=== PATIENT | female | born 1950 | race Caucasian/White ===

== ENCOUNTER 2019-11-04 12:58 | Outpatient (CLI) | payer MEDICARE, SELFPAY ==
--- NOTE | 2019-11-04 13:21 | XR_ITS ---
WS: [id number] Bone mineral density performed on a [employer], 11/04/2019 Clinical data: POST MENOPAUSAL Findings: The first 4 lumbar vertebral bodies demonstrated the bone mineral density of 1.016 g/cm2 for a young adult T score of -1.4 Measurement of the left hip reveals a bone mineral density of 0.768 g/cm2 with a young adult T score of -1.9. Measurement of the right hip reveals the bone mineral density of 0.754 g/sq cm for young adult T scor e of -2.0. XR/XR DEXA axial skeleton* [id number] Impression: Osteopenia of the lumbar spine and both hips.
== END 2019-11-04 12:59 | disposition home or self-care (01) ==
LOC: RADWPI 13:07
PROVIDERS: Family Provider Internal Medicine; PCP Internal Medicine; Referring Provider Internal Medicine; Visit Provider Internal Medicine
DX: Z78.0 Asymptomatic menopausal state (principal); M85.88 Other specified disorders of bone density and structure, other site
CPT/HCPCS: 77080

== ENCOUNTER 2019-12-09 08:43 | Day surgery (SDC) | payer MEDICARE, SELFPAY ==
[2019-12-06 13:22] VITALS: BMI 32.8
--- NOTE | 2019-12-09 08:58 | PM.HPUD ---
H&P update H&P Update: DATE OF SURGERY/PROCEDURE: 12/09/19 DATE H&P PERFORMED: 12/05/19 PLANNED PROCEDURE: Operation Date: 12/09/19 10:30 Proposed Procedures p EGD 11517 R10.9(Not Applicable) - Matt Dewitt MD Full H&P Perinent History: Medical/Surgical History: Medical History (Updated 12/05/19 @ 15:54 by Matt Dewitt MD) PMR (polymyalgia rheumatica) (Acute) Situational hypertension (Acute) Family History: Family History (Updated 12/05/19 @ 09:32 by Judith Mercado LPN) Other Diabetes Heart disease Social History: Social History Smoking and tobacco status: never smoked Alcohol intake: current Alcohol intake frequency: holidays/special occasions only Marital status: Current occupational status: retired History of recent travel: No
--- NOTE | 2019-12-09 09:20 | ANES.PREANE2 ---
Pre-Anesthetic Assessment Pre-Anesthetic Assessment: Height/Weight: Height 1.7 m Weight 95.254 kg Preop Diagnosis: RUQ pain Proposed Procedure: Operation Date: 12/09/19 10:30 Proposed Procedures p EGD 39045 R10.9(Not Applicable) - Matt Dewitt MD Last Intake: 18:30 Exam: Pre-Anes Outpt Exam: alert, oriented x 3, clear to auscultation bilaterally and regular rate & rhythm Airway: Submandibular: WNL Cervical ROM: WNL MP: 1 Dentition: Caps GI: Comments: RUQ pain Anesthetic Plan: ASA status: 1 Anesthesia: MAC PFSH Anesthesia PFSH: Medical History (Updated 12/05/19 @ 15:54 by Matt Dewitt MD) PMR (polymyalgia rheumatica) (Acute) Situational hypertension (Acute) Surgical History (Updated 12/05/19 @ 15:54 by Matt Dewitt MD) History of bilateral mastectomy (Acute) History of breast surgery (Acute) History of colonoscopy (Acute) Social History (Updated 12/05/19 @ 14:46 by RODO Augustin) Smoking and tobacco status: never smoked Alcohol intake: current Alcohol intake frequency: holidays/special occasions only Marital status: Current occupational status: retired History of recent travel: No Data Anesthesia Cardiac Studies: No Data to Display
[2019-12-09 09:48] VITALS: BP 130/87; PULSE 77; RESP 20; O2SAT 100
[2019-12-09] MEDS: sodium chloride 0.9% 1,000 ML 30 ML (10:03)
[2019-12-09 11:16] VITALS: BP 90/54; PULSE 75; RESP 16; TEMP 37.1; O2SAT 98
[2019-12-09 11:20] VITALS: BP 102/53; PULSE 68; RESP 16; O2SAT 98
[2019-12-09 11:37] VITALS: BP 112/66; PULSE 72; RESP 16; O2SAT 99
== END 2019-12-09 11:55 | disposition home or self-care (01) ==
PROVIDERS: Family Provider Internal Medicine; PCP Internal Medicine; Visit Provider Internal Medicine
PROC: 0DJ08ZZ Inspection of Upper Intestinal Tract, Via Natural or Artificial Opening Endoscopic (ICD-10-PCS; CPT 43235; principal; 2019-12-09 10:30)
DX: R10.11 Right upper quadrant pain (principal); R11.10 Vomiting, unspecified; Z82.49 Family history of ischemic heart disease and other diseases of the circulatory system; Z83.3 Family history of diabetes mellitus; M35.3 Polymyalgia rheumatica; R03.0 Elevated blood-pressure reading, without diagnosis of hypertension
CPT/HCPCS: 12345; 43235; J2704; J7030

== ENCOUNTER 2019-12-10 08:57 | Outpatient (CLI) | payer MEDICARE, SELFPAY ==
--- NOTE | 2019-12-10 09:30 | US_ITS ---
WS: [id number] Gallbladder ultrasound, 12/10/2019 Clinical Data: RIGHT UPPER QUADRANT PAIN Comparison: None. Findings: The gallbladder shows no sludge or stone. The wall measures 2.1 mm with no pericholecystic fluid. The common bile duct is 3.1 mm and there are no intrahepatic ductal abnormalities. Liver shows no cysts, masses or dilated intrahepatic ducts. The pancreas is not obscured by overlying bowel gas and no cyst, pseudocyst, or evidence of pancreati tis is noted. Right kidney measures 3.89 x 5.71 x10.8 cm and no cyst, masses or hydronephrosis can be seen. The aorta and inferior vena cava show no vascular abnormalities. US/US gall bladder 68190 Impression: Negative gallbladder.
== END 2019-12-10 08:58 | disposition home or self-care (01) ==
LOC: RAD 09:00
PROVIDERS: Family Provider Internal Medicine; PCP Internal Medicine; Visit Provider Internal Medicine
DX: R10.11 Right upper quadrant pain (principal)
CPT/HCPCS: 76705

== ENCOUNTER 2021-06-21 06:00 | Outpatient (RCR) | payer MEDICARE, SELFPAY | END 2021-06-29 23:59 | disposition home or self-care (01) | LOC: WPT 06:00 | PROVIDERS: Family Provider Internal Medicine; PCP Internal Medicine; Referring Provider Nurse Practitioner Family; Visit Provider Nurse Practitioner Family | DX: M76.11 Psoas tendinitis, right hip (principal) | CPT/HCPCS: 97110; 97112; 97140; 97161 ==

== ENCOUNTER 2021-06-30 06:00 | Outpatient (RCR) | payer MEDICARE, SELFPAY | END 2021-07-29 23:59 | disposition home or self-care (01) | LOC: WPT 06:00 | PROVIDERS: PCP Internal Medicine; Referring Provider Nurse Practitioner Family; Visit Provider Nurse Practitioner Family | DX: M76.11 Psoas tendinitis, right hip (principal) | CPT/HCPCS: 97110; 97140 ==